=== PATIENT | female | born 1995 | race African-American/Black ===

== ENCOUNTER 2017-09-19 12:13 | Emergency (ER) | payer SELFPAY ==
[~2017-09-19] VITALS: Ht 160 cm; Wt 60.0 kg
[2017-09-19 13:36] LABS: URINE BLOOD DIPSTICK MODERATE (NEGATIVE); URINE COLOR YELLOW; URINE GLUCOSE - DIPSTICK NEGATIVE (NEGATIVE); URINE KETONE 15 mg/dL (NEGATIVE); URINE LEUK ESTERASE NEGATIVE (NEGATIVE); URINE NITRITE - DIPSTICK NEGATIVE (Negative); URINE PH 5.5 (4.5-8.0); URINE PROTEIN - DIPSTICK NEGATIVE (NEG-TRACE); URINE SPECIFIC GRAVITY >=1.030
[2017-09-19 13:36] LABS: HEMATOCRIT 38.2 % (37.0-47.0); HEMOGLOBIN 11.8 g/dl (12.0-16.0); IMMATURE GRANULOCYTES 0.2 % (0.0-1.0); MEAN CELL VOLUME 81.3 fL CALC (80.0-100.0); MEAN CORPUSCULAR HGB 25.1 pG CALC (26.0-32.0); MEAN CORPUSCULAR HGB CONC 30.9 g/L CALC (32.0-36.0); NEUT# 2.79 thou/uL (2.00-7.15); RED BLOOD COUNT 4.7 mill/uL (4.20-5.60)
[2017-09-19 13:42] LABS: URINE BILIRUBIN - DIPSTICK SMALL (NEGATIVE); URINE CLARITY CLEAR
[2017-09-19 13:51] LABS: URINE SQUAMOUS EPITHELIAL CELL FEW EPI/hpf (0-FEW)
[2017-09-19 14:02] LABS: ALBUMIN 4.8 g/dL (3.2-5.0); ALKALINE PHOSPHATASE 84 u/l (38-126); ANION GAP 20 (6-22 (CALC)); BILIRUBIN, TOTAL 0.9 mg/dL (0.0-1.4); BUN 8 mg/dL (7-17); BUN/CREATININE RATIO 11 (12-20 (CALC)); CALCIUM 10.6 mg/dL (8.4-10.2); CARBON DIOXIDE 21 mmol/l (22-30); CHLORIDE 108 mmol/l (95-108); CREATININE 0.7 mg/dL (0.5-1.0); GFR > 60 ML/MIN (>=60 (CALC)); GFR FOR AFR.AMER. > 60 ML/MIN (>=60 (CALC)); GLUCOSE 75 mg/dL (65-105); POTASSIUM 4.4 mmol/l (3.5-5.1); SGOT/AST 22 u/l (14-36); SGPT/ALT 19 u/l (9-52); SODIUM 145 mmol/l (137-146); TOTAL PROTEIN 8.4 g/dL (6.3-8.2)
[2017-09-19 14:18] LABS: BETA-HCG, QUANT(RESULT NUMBER) 939 mIU/mL
[2017-09-19 15:36] VITALS: BP 117/61
== END 2017-09-19 15:36 | disposition home or self-care (01) | DRG 392 ==
LOC: ED 12:13
PROVIDERS: Emergency Medicine
DX: R10.31 Right lower quadrant pain (principal); R11.0 Nausea

== ENCOUNTER 2018-04-04 13:53 | Emergency (ER) | payer SELFPAY ==
[~2018-04-04] VITALS: Ht 160 cm; Wt 59.0 kg
[2018-04-04] MEDS ORDERED: AUGMENTIN875TAB PO (14:12)
[2018-04-04 14:20] VITALS: BP 122/76
== END 2018-04-04 14:20 | disposition home or self-care (01) | DRG 159 ==
LOC: ED 13:53
DX: K08.89 Other specified disorders of teeth and supporting structures (principal)

== ENCOUNTER 2019-09-19 | Emergency (ER) | payer OTHER ==
[~2019-09-19] MED LIST: AUGMENTIN875TAB PO
[2019-09-19] MEDS ORDERED: TAM75CAP PO (19:29)
== END 2019-09-19 19:39 | disposition home or self-care (01) ==
DX: J11.1 Influenza due to unidentified influenza virus with other respiratory manifestations (principal); F17.200 Nicotine dependence, unspecified, uncomplicated

== ENCOUNTER 2020-07-08 13:32 | Emergency (ER) | payer OTHER ==
[~2020-07-08] VITALS: Ht 160 cm; Wt 68.0 kg
[~2020-07-08 13:32] MED LIST changes: +TAM75CAP PO
[2020-07-08] MEDS ORDERED: ZPAK PO (15:02)
[2020-07-08 15:05] VITALS: BP 111/76
== END 2020-07-08 15:05 | disposition home or self-care (01) ==
LOC: ED 13:32
DX: J06.9 Acute upper respiratory infection, unspecified (principal); Z20.828 Contact with and (suspected) exposure to other viral communicable diseases

== ENCOUNTER 2021-05-07 19:42 | Emergency (ER) | payer OTHER ==
[~2021-05-07] VITALS: Ht 160 cm; Wt 65.0 kg
[~2021-05-07 19:42] MED LIST changes: +ZPAK PO
[2021-05-07 22:26] LABS: URINE BILIRUBIN - DIPSTICK NEGATIVE (NEGATIVE); URINE BLOOD DIPSTICK NEGATIVE (NEGATIVE); URINE COLOR YELLOW; URINE GLUCOSE - DIPSTICK NEGATIVE (NEGATIVE); URINE KETONE TRACE mg/dL (NEGATIVE); URINE LEUK ESTERASE NEGATIVE (NEGATIVE); URINE PH 6.5 (4.5-8.0); URINE PROTEIN - DIPSTICK NEGATIVE (NEG-TRACE); URINE SPECIFIC GRAVITY 1.025; URINE UROBILINOGEN - DIPSTICK 0.2 E.U./dL (0.2)
[2021-05-07 22:30] LABS: URINE NITRITE - DIPSTICK POSITIVE (Negative)
[2021-05-07 22:37] LABS: URINE BACTERIA MANY hpf; URINE SQUAMOUS EPITHELIAL CELL MANY EPI/hpf (0-FEW)
[2021-05-07] MEDS ORDERED: NAPROXEN500 MG PO (23:36)
[2021-05-07 23:59] VITALS: BP 105/68
[2021-05-08] MEDS ORDERED: KEFLEX500 MG PO (09:14)
== END 2021-05-07 23:59 | disposition home or self-care (01) | DRG 552 ==
LOC: ED 19:42
PROVIDERS: Emergency Medicine
DX: S13.9XXA Sprain of joints and ligaments of unspecified parts of neck, initial encounter (principal); S43.402A Unspecified sprain of left shoulder joint, initial encounter; N39.0 Urinary tract infection, site not specified; F17.200 Nicotine dependence, unspecified, uncomplicated; B96.1 Klebsiella pneumoniae [K. pneumoniae] as the cause of diseases classified elsewhere; V49.40XA Driver injured in collision with unspecified motor vehicles in traffic accident, initial encounter